=== PATIENT | male | born 1975 | race Caucasian/White ===

== ENCOUNTER 2016-04-11 | Outpatient (CLI) | payer BC | END 2016-04-11 10:30 | disposition home or self-care (01) | DX: Z77.098 Contact with and (suspected) exposure to other hazardous, chiefly nonmedicinal, chemicals (principal) ==

== ENCOUNTER 2017-02-18 08:53 | Emergency (ER) | payer BC ==
[2017-02-18 09:00] VITALS: BP 117/71
--- NOTE | 2017-02-18 09:59 | ED Physician Documentation ---
PD HPI LOWER EXT INJURY - Stated complaint Stated Complaint: LT FOOT INJ/COUGH - Chief complaint Chief Complaint: Ext Problem - History obtained from History obtained from: Patient - History of Present Illness PD HPI LOW EXT INJURY LOCATION: Left, Ankle Type of injury: Fall, Twist Where injury occurred: Home Timing - onset: Last night Timing - duration: Hours Timing - details: Abrupt onset, Still present Improved by: Rest, Immobilization Worsened by: Moving, Palpating Associated symptoms: Swelling. No: Weakness, Numbness Contributing factors: No: Anticoagulated Similar symptoms before: Has not had sx before Recently seen: Not recently seen - Additional information Additional information: 41-year-old male walking down his steps last night slipped and twisted his ankle and fell down the stairs. He is having pain on the lateral aspect of his ankle and is having some trouble bearing weight on his foot. Review of Systems Constitutional: denies: Fever Ears: denies: Ear pain Nose: reports: Rhinorrhea / runny nose, Congestion Respiratory: reports: Cough GI: denies: Vomiting Skin: denies: Rash Musculoskeletal: reports: Extremity pain, Pain with weight bearing. denies: Neck pain, Back pain PD PAST MEDICAL HISTORY - Present Medications Home Medications: Ambulatory Orders Medication Instructions Recorded Confirmed Azithromycin [Zithromax] 250 mg PO DAILY #6 tablet 02/18/17 Citalopram [CeleXA] 40 mg PO DAILY 02/18/17 02/18/17 clonazePAM [Clonazepam] 1 mg PO BID PRN 02/18/17 02/18/17 - Allergies Allergies/Adverse Reactions: Allergies Allergy/AdvReac Type Severity Reaction Status Date / Time No Known Drug Allergies Allergy Verified 02/18/17 08:59 PD ED PE NORMAL - Vitals Vital signs reviewed: Yes (normal ) - General General: No acute distress, Well developed/nourished - HEENT HEENT: Atraumatic, PERRL, EOMI, Other (both TM's are inflamed the left worse than the right. ) - Respiratory Respiratory: No respiratory distress, Other (diminished breath sounds with transmitted upper airway sounds throughout) - Derm Derm: Normal color, Warm and dry, No rash - Extremities Extremities: No deformity, Other (There is swelling and tenderness to the talo- fibular ligament on the right and no tenderness to the proximal 5th. Distal n/v is intact. ) - Neuro Neuro: No motor deficit, No sensory deficit, Normal speech Eye Opening: Spontaneous Motor: Obeys Commands Verbal: Oriented GCS Score: 15 - Psych Psych: Normal mood, Normal affect Results - Vitals Vitals: Vital Signs - 24 hr 02/18/17 08:55 Temperature 36.8 C Heart Rate 98 Respiratory 16 Rate Blood Pressure 117/71 O2 Saturation 96 Oxygen O2 Source Room air - Rads (name of study) left ankle Radiology: Prelim report reviewed (Impression: 1. No definite acute osseous abnormality. 2. Soft tissue swelling.), EMP read indepedently, See rad report Procedures - Splint (location) left ankle Splint applied by: Tech Type of splint: Ankle airsplint Other: Patient tolerated well, No complications, Neurovascular intact, Good alignment PD MEDICAL DECISION MAKING - ED course Complexity details: reviewed results, re-evaluated patient, considered differential, d/w patient, d/w family ED course: 41-year-old male with a left ankle sprain has no evidence of fracture on x-rays placed into a air stirrup. He has had a cough for the past 3 days as well and has OM on exam. He is given decadron and we will put him on some zithromax. Departure - Departure Disposition: 01 Home, Self Care Clinical Impression: Ankle sprain Qualifiers: Encounter type: initial encounter Involved ligament of ankle: calcaneofibular ligament Laterality: left Qualified Code(s): S93.412A - Sprain of calcaneofibular ligament of left ankle, initial encounter Otitis media Qualifiers: Otitis media type: suppurative Chronicity: acute Laterality: bilateral Recurrence: not specified as recurrent Spontaneous tympanic membrane rupture: without spontaneous rupture Qualified Code(s): H66.003 - Acute suppurative otitis media without spontaneous rupture of ear drum, bilateral Instructions: ED Sprain Ankle W X Ray, ED Otitis Media Acute Adult Follow-Up: Troy Chua DO [Primary Care Provider] - Prescriptions: Azithromycin [Zithromax] 250 mg PO DAILY #6 tablet Forms: Activity restrictions
--- NOTE | 2017-02-18 10:00 | XRAY Preliminary Report ---
Exam: XR ANKLE 3 VIEW LT IMPRESSION: 1. No definite acute osseous abnormality. 2. Soft tissue swelling. If there is clinical concern for radiographically occult fracture, immobilization with repeat radiogr aph in 7-10 days is recommended. [facility] SITE ID: [id number]
--- NOTE | 2017-02-18 10:03 | XRAY Report ---
EXAM: LEFT ANKLE RADIOGRAPHY EXAM DATE: 02/18/2017 09:09 AM. CLINICAL HISTORY: Trauma. COMPARISON: None. TECHNIQUE: 3 views. FINDINGS: Bones: No definite acute fractures or bone lesions. Mild bony irregularity at the distal lateral mall eolus may relate to remote trauma or degeneration. Joints: Normal. No effusion. No subluxations. The ankle mortise is normally aligned. Soft Tissues: Soft tissue swelling about the ankle. IMPRESSION: 1. No definite acute osseous abnormality. 2. Soft tissue swelling. If there is clinical concern for radiographically occult fracture, immobilization with repeat radiogr aph in 7-10 days is recommended. [facility] Referring Provider Line: [phone] SITE ID: [id number]
[2017-02-18] MEDS ORDERED: DEXAMETHASONE 10 MG/ML VIAL PO STA (10:10)
[2017-02-18] MEDS ORDERED: DEXAMETHASONE 10 MG/ML VIAL ONE (10:23)
== END 2017-02-18 10:22 | disposition home or self-care (01) ==
LOC: ED 08:53
DX: S93.412A Sprain of calcaneofibular ligament of left ankle, initial encounter (principal); W10.9XXA Fall (on) (from) unspecified stairs and steps, initial encounter; Y92.019 Unspecified place in single-family (private) house as the place of occurrence of the external cause; H66.003 Acute suppurative otitis media without spontaneous rupture of ear drum, bilateral
CPT/HCPCS: 99283; 99284

== ENCOUNTER 2017-05-31 09:30 | Outpatient (CLI) | payer BC ==
[2017-05-31 12:26] LABS: BASOPHILS % (AUTO) 0.7 %; EOSINOPHILS # (AUTO) 0.1 10^3/uL (0.0-0.7); EOSINOPHILS % (AUTO) 1.9 %; HGB - HEMOGLOBIN 15.7 g/dL (14.0-18.0); MEAN CORPUSCULAR HEMOGLOBIN 31.2 pg (27.0-31.0); MEAN CORPUSCULAR HGB CONC 33.9 g/dL (32.0-36.0); MEAN PLATELET VOLUME 9.2 fL (7.4-11.4); MONOCYTES # (AUTO) 0.6 10^3/uL (0.0-1.0); NEUTROPHILS # (AUTO) 4.8 10^3/uL (1.5-6.6); NEUTROPHILS % (AUTO) 63.4 %; PLT - PLATELET COUNT 156 10^3/uL (130-450); RED BLOOD COUNT 5.04 10^6/uL (4.70-6.10); RED CELL DISTRIBUTION WIDTH 13.5 % (12.0-15.0); WHITE BLOOD COUNT 7.6 x10^3/uL (4.8-10.8)
[2017-05-31 13:01] LABS: ALBUMIN 4.4 g/dL (3.2-5.5); ALBUMIN/GLOBULIN RATIO 1.6 (1.0-2.2); ALKALINE PHOSPHATASE 67 IU/L (42-121); ALT ALANINE AMINOTRANSFERASE 21 IU/L (10-60); AST ASPARTATE AMINOTRANSFERASE 23 IU/L (10-42); BILIRUBIN,TOTAL 0.3 mg/dL (0.2-1.0); BUN - BLOOD UREA NITROGEN 14 mg/dL (6-20); CALCIUM 9.4 mg/dL (8.5-10.3); CARBON DIOXIDE - CO2 25 mmol/L (21-32); CHLORIDE 105 mmol/L (101-111); CHOL/HDL RATIO 4.6 (<5.0); CHOLESTEROL 237 mg/dL; CREATININE 0.6 mg/dL (0.6-1.2); GFR - MDRD 148 (>89); GLUCOSE 97 mg/dL (70-100); HDL CHOLESTEROL 51 mg/dL; LDL CHOLESTEROL,CALCULATED 175 mg/dL; LDL/HDL RATIO 3.4 (<3.6); SODIUM 138 mmol/L (135-145); TOTAL PROTEIN 7.1 g/dL (6.7-8.2); VLDL CHOLESTEROL 11 mg/dL
== END 2017-05-31 23:59 | disposition home or self-care (01) ==
LOC: LAB.WCP 09:30
PROVIDERS: ATTEND Family Medicine
DX: Z00.00 Encounter for general adult medical examination without abnormal findings (principal); E05.00 Thyrotoxicosis with diffuse goiter without thyrotoxic crisis or storm
CPT/HCPCS: 36415; 80053; 80061; 83721; 84443; 85025

== ENCOUNTER 2018-02-03 15:39 | Emergency (ER) | payer BC | END 2018-02-03 16:20 | disposition left against medical advice (07) | LOC: ED 15:39 | DX: Z53.21 Procedure and treatment not carried out due to patient leaving prior to being seen by health care provider (principal) | CPT/HCPCS: 93005; 99282 ==